=== PATIENT | male | born 1970 | race Caucasian/White ===

== ENCOUNTER 2021-09-01 12:05 | Emergency (ER) | payer SELFPAY ==
[2021-09-01] VITALS (7 sets, daily range): BP systolic 135–197; BP diastolic 80–128; PULSE 84–99; RESP 16–21; TEMP 36.8; O2SAT 97–99; BMI 31.2
--- NOTE | 2021-09-01 12:29 | ECG_ITS ---
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 Measurements Intervals [place] Rate: 91 P: 46 MN: 120 QRS: 82 QRSD: 104 T: 17 QT: 350 QTc: 431 Interpretive Statements SINUS RHYTHM No previous ECG available for comparison Electronically Signed On 09-01-2021 18:07:01 GEAR INSPECTOR by Dylon Mathis M.D. [email or web address].[email or web address]/store/[id number]
--- NOTE | 2021-09-01 12:54 | W.ED.CHESTPA ---
HPI - Chest Pain General: Chief Complaint: Chest Pain Stated Complaint: Chest Pains, high blood pressure, on new meds Time Seen by Provider: 09/01/21 12:29 Source: patient Mode of arrival: ambulatory History of Present Illness: 51-year-old male presents to the emergency room with complaint of chest discomfort he had for the last 3 to 4 days. Additionally he said numbness in his arms bilaterally and in his face. He seen his doctor multiple times last week for accelerated hypertension he was initially on lisinopril then increase the dose and change to olmesartan today seen him and they added a beta-shanelle but he is not the opportunity to take it presented here with the above symptoms. He denies any diaphoresis or shortness of breath this time. Chest pain is reproducible palpation across the anterior chest wall. MD complaint: chest pain Onset (ago): day(s) Timing of current episode: episodic Prior episodes: Yes Onset: during rest and during exertion Pain location: right chest Pain radiation: right arm and left arm Severity: moderate Quality: sharp Relieving factors: nothing Exacerbating factors: nothing Associated symptoms: Deny abdominal pain, diaphoresis, dyspnea, fever(s), leg edema, nausea, palpitations, sense of impending doom, syncope or vomiting Treatment prior to arrival: aspirin and other (Oral antihypertensives) Risk Factors: Coronary artery disease risk factors: smoking history Review of Systems Const: Denies: fever(s) or diaphoresis ENMT: Denies: throat pain, ear or mastoid pain, nasal discharge or nasal congestion Card: Denies: palpitations or syncope Resp: Denies: dyspnea GI: Denies: abdominal pain, nausea or vomiting : Denies: flank pain, dysuria, urinary frequency or urinary urgency Skin/Breast: Denies: rash or pruritus [facility] PFSH: Medical History (Updated 09/02/21 @ 06:30 by Alonzo Golden DO) Hypertension Obesity Social History (Updated 09/01/21 @ 12:57 by Alonzo Golden DO) Smoking and tobacco status: current every day smoker Substance/Drug Use: current Physical Exam Const: GENERAL APPEARANCE: cooperative and comfortable ORIENTATION/CONSCIOUSNESS: Yes awake, Yes oriented to person, Yes oriented to place and Yes oriented to time HENMT: COMMON NORMALS: normocephalic and atraumatic HEAD & SCALP: normocephalic and atraumatic Neck/C-Spine: COMMON NORMALS: no JVD Resp: COMMON NORMALS: normal respiratory effort, No retractions, No use of accessory muscles and clear to auscultation bilaterally AUSCULTATION: clear to auscultation bilaterally Cardio: COMMON NORMALS: no JVD, regular rate, regular rhythm and No murmurs present (Cardio) RATE: regular rate RHYTHM: regular rhythm GI: COMMON NORMALS: Soft to palpation and No hepatosplenomegaly present AUSCULTATION: Yes normoactive bowel sounds PALPATION: Yes Soft to palpation, No Tenderness to palpation present (GI), No Guarding due to palpation present (GI) and Yes No hepatosplenomegaly present Extremity: COMMON NORMALS: normal to inspection, capillary refill normal, no clubbing, cyanosis or edema, no calf tenderness and no pedal edema Neuro: SENSORIUM/ORIENTATION: Yes oriented to person, Yes oriented to place and Yes oriented to time Skin: COMMON NORMALS: no rashes or lesions noted GENERAL SKIN EXAM: no rashes or lesions noted Course Vital Signs: Vital signs: Vital Signs Temperature 98.3 F 09/01/21 12:18 Pulse Rate 84 09/01/21 18:03 Respiratory Rate 19 H 09/01/21 16:33 Blood Pressure 168/95 09/01/21 18:03 Pulse Oximetry 99 09/01/21 18:03 MDM - Chest Pain Medical Decision Making Blood pressure is elevated. He has had chest pain for a year EKG and troponins are negative. I think we can set him up for outpatient stress test. After he came back in the room he was complaining of facial numbness but his sensation bilaterally is equal. The rest of his NIH score would be 0. He is extremely anxious. We did give him quite a bit of medicine for his blood pressure while he was here. He was given Toprol-XL by his nurse practitioner and is on olmesartan 40 a day now. Olmesartan is maxed we will increase the Toprol-XL to 50 once a day. Additionally start him on amlodipine 10 mg daily and isosorbide mononitrate 30 mg daily. In addition to that patient has been taking several aspirin a day he was under the impression that by taking the aspirin that his blood pressure would get labs. Advised him just take 1 baby aspirin a day no more than that as needed. Follow-up with his blood pressure in the doctor's office tomorrow. Medical Records I reviewed the patient's medical records. Lab Data I reviewed the patient's lab results. : 09/01/21 12:52 09/01/21 13:[address] 09/01/21 16:38 IMPRESSION: No acute intracranial abnormality. Laboratory Results WBC 11.3 10^3/uL (4.0-10.0) H 09/01/21 12:52 RBC 5.29 10^6/uL (4.1-5.3) 09/01/21 12:52 Hgb 15.9 g/dL (11.7-16.6) 09/01/21 12:52 Hct 47.5 % (42.0-52.0) 09/01/21 12:52 MCV 89.8 fl (80-94) 09/01/21 12:52 MCH 30.1 pg (28.0-34.0) 09/01/21 12:52 MCHC 33.5 g/dL (30.0-36.0) 09/01/21 12:52 RDW 13.0 % (12.1-15.1) 09/01/21 12:52 Plt Count 290 10^3/cmm (130-400) 09/01/21 12:52 MPV 8.8 fL (7.4-10.4) 09/01/21 12:52 Neut % (Auto) 61.3 % 09/01/21 12:52 Lymph % (Auto) 29.1 % 09/01/21 12:52 Citrus % (Auto) 6.3 % 09/01/21 12:52 Eos % (Auto) 2.0 % 09/01/21 12:52 Baso % (Auto) 1.0 % 09/01/21 12:52 Neut # (Auto) 6.95 10^3/uL (1.8-7.7) 09/01/21 12:52 Lymph # (Auto) 3.3 10^3/uL (0.8-4.8) 09/01/21 12:52 Citrus # (Auto) 0.7 10^3/uL (0.2-0.9) 09/01/21 12:52 Eos # (Auto) 0.2 10^3/uL (0.0-0.8) 09/01/21 12:52 Baso # (Auto) 0.1 10^3/uL (0.0-0.1) 09/01/21 12:52 Nucleated RBC % (auto) 0 % 09/01/21 12:52 Nucleated RBCs # 0.0 /100WBC 09/01/21 12:52 Sodium 140 mmol/L (136-145) 09/01/21 13:57 Potassium 4.0 mmol/L (3.5-5.1) 09/01/21 13:57 Chloride 106 mmol/L (98-107) 09/01/21 13:57 Carbon Dioxide 24 mmol/L (22-29) 09/01/21 13:57 Anion Gap 14.0 (5-19) 09/01/21 13:57 BUN 18 mg/dL (6-20) 09/01/21 13:57 Creatinine 0.9 mg/dL (0.7-1.2) 09/01/21 13:57 GFR Calculation 89.3 mL/min (90-130) L 09/01/21 13:57 Glucose 104 mg/dL (65-115) 09/01/21 13:57 Calculated Osmolality 292 mOsm/kg (285-295) 09/01/21 13:57 Calcium 8.7 mg/dL (8.5-10.5) 09/01/21 13:57 Total Bilirubin 0.2 mg/dL (0.15-1.2) 09/01/21 13:57 AST 18 U/L (0-40) 09/01/21 13:57 ALT 20 U/L (0-41) 09/01/21 13:57 Alkaline Phosphatase 108 IU/L (40-130) 09/01/21 13:57 Creatine Kinase 123 U/L (39-308) 09/01/21 13:57 Troponin T Baseline 6 ng/L (0-15) 09/01/21 13:57 Troponin T 120 Minute 6.00 ng/L (0-15) 09/01/21 15:54 Delta Troponin T TNP 09/01/21 15:54 Total Protein 7.0 g/dL (6.6-8.7) 09/01/21 13:57 Albumin 4.3 g/dL (3.5-5.2) 09/01/21 13:57 Globulin 2.7 g/dL (1.3-4.6) 09/01/21 13:57 Discharge Plan Discharge Patient Disposition: Home Clinical Impression: Hypertension, Atypical chest pain Prescriptions: New amlodipine 10 mg tablet 10 mg PO DAILY Qty: 30 0RF Toprol XL 50 mg tablet extended release 24 hr 50 mg PO DAILY Qty: 30 0RF olmesartan 40 mg tablet 40 mg PO DAILY Qty: 30 0RF isosorbide mononitrate 30 mg tablet extended release 24 hr 30 mg PO DAILY Qty: 30 0RF Discharge Orders: Discharge ED (Routine); Ordered 09/01/21 Ordered By: Alonzo Golden Patient Instructions: Opioid Safety Activity Restrictions/Additional Instructions: Case management will call to set up a Lexiscan sestamibi stress test. Start the medications you were given above. Take 1 baby aspirin daily recheck blood pressure with your primary care doctor tomorrow. Coding Level of Care Code ED Hydrogen Plant Operations Manager for Cornelio Fwsantiago Exam Comprehensive
[2021-09-01] MEDS: enalaprilat 1.25 mg/mL Inj IVP (13:01)
[2021-09-01] MEDS: amlodipine 10 mg Tablet PO (13:01)
[2021-09-01] MEDS: metoprolol succinate ER (24 HR) 50 mg Tablet PO (13:01)
[2021-09-01] MEDS: labetalol 5 mg/mL SDV 20mL 10 MG IVP ×3 (13:01→17:08)
[2021-09-01 13:03] LABS: Basophils # 0.1 10^3/uL (0.0-0.1); Eosinophils # 0.2 10^3/uL (0.0-0.8); Hematocrit 47.5 % (42.0-52.0); Hemoglobin 15.9 g/dL (11.7-16.6); Lymphocytes # 3.3 10^3/uL (0.8-4.8); Lymphocytes % 29.1 %; Mean Corpuscular HGB Conc 33.5 g/dL (30.0-36.0); Mean Corpuscular Hemoglobin 30.1 pg (28.0-34.0); Mean Corpuscular Volume 89.8 fl (80-94); Mean Platelet Volume 8.8 fL (7.4-10.4); Monocytes # 0.7 10^3/uL (0.2-0.9); Monocytes % 6.3 %; Neutrophils # 6.95 10^3/uL (1.8-7.7); Neutrophils % 61.3 %; Nucleated Red Blood Cells % 0 %; Platelet Count 290 10^3/cmm (130-400); Red Blood Count 5.29 10^6/uL (4.1-5.3); White Blood Count 11.3 10^3/uL (4.0-10.0)
[2021-09-01] MEDS: hyDRALAzine 20 mg/mL INJ 1 mL IVP ×2 (14:15→15:01)
--- NOTE | 2021-09-01 14:29 | ECG_ITS ---
[facility] Test Date: 2021-09-01 Pat Name: Juan J Guillen Department: Room: Gender: Male Cordwainer: : 1970 Requested By: Alonzo Ruiz Order Number: [id number] Mark MD: Dylon Mathis M.D. Measurements Intervals [place] Rate: 87 P: 53 [place]: 143 QRS: 77 QRSD: 106 T: 40 QT: 375 QTc: 452 Interpretive Statements SINUS RHYTHM Compared to ECG 09/01/2021 12:16:47 No significant changes Electronically Signed On 09-01-2021 18:07:51 MIDDLE SCHOOL BAND TEACHER by Dylon Mathis M.D. [email or web address] [email or web address].[employer]/store/OM/[id number]
[2021-09-01 14:53] LABS: Alanine Aminotransferase 20 U/L (0-41); Albumin Level 4.3 g/dL (3.5-5.2); Alkaline Phosphatase 108 IU/L (40-130); Aspartate Amino Transferase 18 U/L (0-40); Blood Urea Nitrogen 18 mg/dL (6-20); Calcium 8.7 mg/dL (8.5-10.5); Carbon Dioxide 24 mmol/L (22-29); Chloride 106 mmol/L (98-107); Creatine Phosphokinase 123 U/L (39-308); Globulin 2.7 g/dL (1.3-4.6); Glomerular Filtration Rate 89.3 mL/min (90-130); Glucose 104 mg/dL (65-115); Osmolality Calculated 292 mOsm/kg (285-295); Sodium 140 mmol/L (136-145); Total Bilirubin 0.2 mg/dL (0.15-1.2)
[2021-09-01 14:55] LABS: Troponin(5th) Baseline 6 ng/L (0-15)
[2021-09-01] MEDS: cloNIDine 0.1 mg Tablet PO (15:01)
--- NOTE | 2021-09-01 16:38 | CTR_ITS ---
PROCEDURE INFORMATION: Exam: CT Head Without Contrast Exam date and time: 09/01/2021 4:38 PM Age: 51 years old Clinical indication: Numbness / parasthesia; Additional info: Accelerated hypertension facial numbness TECHNIQUE: Imaging protocol: Computed tomography of the head without contrast. Radiation optimization: All CT scans at this facility use at least one of these dose optimization techniques: automated exposure control; mA and/or kV adjustment per patient size (includes targeted exams where dose is matched to clinical indication); or iterative reconstruction. COMPARISON: No relevant prior studies available. RADIATION DOSE METRICS: Total DLP (mGy-cm): 854.84 FINDINGS: Brain: Normal. No hemorrhage. Unremarkable white matter. No mass effect. Cerebral ventricles: No ventriculomegaly. Paranasal sinuses: Visualized sinuses are unremarkable. No fluid levels. Mastoid air cells: Visualized mastoid air cells are well aerated. Bones/joints: Unremarkable. No acute fracture. Soft tissues: Unremarkable. CT/CT head wo con* [id number] IMPRESSION: No acute intracranial abnormality.
[2021-09-01] MEDS: isosorbide mononitrate ER 30 mg Tablet PO (17:45)
--- NOTE | 2021-09-04 15:11 | DCPLANNER ---
Addendum entered by Michell Bird 10/10/21 12:00: Patient had a follow up appointment scheduled for 09.08.21 with [facility] - patient did attend appointment. Patient had an outpatient stress test scheduled for 09.22.21 - patient did attend appointment. Addendum entered by Michell Bird 09/19/21 10:27: Patient has an out patient stress test scheduled for Wednesday, September 22, 2021 at 9:15. Centralized scheduling will call patient with appointment information. Addendum entered by Michell Bird 09/11/21 19:29: Patient had a follow up appointment scheduled for 09.08.21 with [facility] - patient did attend appointment. Original Note: user experience manager had message to schedule a follow up appointment for patient with [facility] and a outpatient stress test. user experience manager called [facility], spoke with Penny, gave clinic patients information. A follow up appointment was scheduled for Wednesday, September 08, 2021 at 9:[address] Benavides. Patient is aware of appointment. user experience manager also had message to schedule an outpatient stress test. user experience manager faxed signed order to centralized scheduling, who will call patient with appointment information.
== END 2021-09-01 17:50 | disposition home or self-care (01) ==
PROVIDERS: Emergency Provider Family Medicine
DX: R07.89 Other chest pain (principal); I10 Essential (primary) hypertension; F17.210 Nicotine dependence, cigarettes, uncomplicated
CPT/HCPCS: 70450; 80053; 82550; 84484; 85025; 93005; 96374; 96375; 96376; 99284; J0360; J3490

== ENCOUNTER 2021-09-22 06:59 | Outpatient (CLI) | payer SELFPAY ==
[2021-09-22 07:27] VITALS: BMI 31.1
--- NOTE | 2021-09-22 07:31 | ECG_ITS ---
Test Date: 2021-09-22 Pat Name: Juan J Guillen Department: Room: Gender: Male Country Singer: Amanda Kessler : 1970 Requested By: Payton Benavides Order Number: [id number] Mark MD: Payton Benavides M.D. Interpretive Statements NAME OF STUDY: LEXISCAN SESTAMIBI STRESS TEST INDICATION: Chest Pain PROCEDURE: At the baseline, the blood pressure was 107/73 mmHg, oxygen saturation 94% with a heart rate of 77 beats per minute. The electrocardiogram showed normal sinus rhythm, right axis deviation. Nonspecific T wave abnormality in lead III, aVF and V6. The Lexiscan was infused over a period of 20 seconds. A total of 0.4 milligrams of Lexiscan was infused. The stress phase was continued for a total of 5 minutes. Heart rate at the end of the stress phase was 91 bpm, oxygen saturation 94% with a blood pressure of 113/67 mmHg. The EKG at the peak infusion revealed sinus rhythm with no significant ST-T wave changes. Sestamibi was injected 20 seconds after the Lexiscan infusion. Blood pressure at the end of the recovery phase was 113/65 mmHg, oxygen saturation 91% with a heart rate of 89 beats per minute. CONCLUSION: 1. No significant EKG changes with the LexiScan infusion. 2. No LexiScan induced chest pain or cardiac arrhythmia. 3. Normal blood pressure and heart rate response. 4. Sestamibi/sestamibi perfusion scan pending; see separate report. Electronically Signed On 09-22-2021 16:26:25 INSPECTOR OUTSIDE STEAM DISTRIBUTION by Payton Benavides M.D. [email or web address].[employer] [facility]/store/OM/[id number]
--- NOTE | 2021-09-22 07:31 | NMCV_ITS ---
NM julia perf SPECT r/s* [id number] Juan J Guillen Age: 51 Gender: M : 1970 Exam Date: 09/22/2021 08:19 Ordering Phys: Payton Benavides MD ([email or web address]) Technologist: SJ Dawson Exam Location: [facility] Indications: CHEST PAIN STRESS TEST Please see separate stress test report in [facility] for full findings IMAGE PROTOCOL Rest/Stress 1 Lexiscan Day Radiopharmaceutical Dose (mCi) Administration Site Administered by Rest: Tc-99m 10.7 IV SJ Ashley Sestamibi Stress:Tc-99m 33.0 IV SJ Ashley Sestamibi Rest: 22-Sep-2021 60 Discovery 630 Stress: 22-Sep-2021 30 Discovery 630 0.4mg Lexiscan. Images obtained in supine and prone position. SPECT RESULTS Technical Quality: Excellent Raw Data Analysis: Normal Image Corrections: No attenuation or motion correction applied Summed Stress Score: 0 Summed Rest Score: 0 Summed Difference Score: 0 PERFUSION FINDINGS SPECT images demonstrate homogeneous tracer distribution throughout the myocardium. FUNCTIONAL RESULTS (calculated via Gated SPECT) Stress Image LV EF (%): 68 Stress EDV (mL):106 TID: 0.99 Stress ESV (mL):34 FUNCTIONAL FINDINGS: The left ventricle is normal in size. Transient Ischemia Dilatation of 0.99. There is normal left ventricular systolic function. The left ventricular ejection fraction is normal with a value of 68%. There is normal left ventricular wall thickening with no regional wall motion abnormality. Normal end-diastolic and end-systolic volumes. IMPRESSIONS 1. Myocardial perfusion imaging is normal. 2. Overall left ventricular systolic function is normal without regional wall motion abnormalities. 3. The left ventricular ejection fraction is normal with a value of 68%. 4. Scan indicates low risk for cardiac events. Payton Benavides MD (Electronically Signed) Final Date: 22 September 2021 17:17 S
[2021-09-22] MEDS: regadenoson 0.4 Mg/5 ml Syringe IVP (08:46)
[2021-09-22 08:57] VITALS: BP 113/65; PULSE 91
== END 2021-09-22 07:00 | disposition home or self-care (01) ==
LOC: RAD 07:06 → CDL 07:26
PROVIDERS: PCP Nurse Practitioner Family; Visit Provider Internal Medicine Cardiovascular Disease
DX: R07.9 Chest pain, unspecified (principal)
CPT/HCPCS: 78452; 93017; A9500; J2785

== ENCOUNTER 2021-09-24 06:55 | Outpatient (CLI) | payer SELFPAY ==
--- NOTE | 2021-09-24 07:00 | USCV_ITS ---
Juan J Guillen Age: 51 Gender: M : 1970 Exam Date: 09/24/2021 07:12 Ordering Phys: Payton Benavides MD ([email or web address]) Technologist: Jeff Waters Exam Location: [facility] Indication: Hypertension BP: 148 / 88 HR: 86 Rhythm: Sinus Technical Quality: Adequate MEASUREMENTS (Male / Female) Normal Values 2D ECHO LV Diastolic Diameter PLAX 3.6 cm 4.2 - 5.9 / 3.9 - 5.3 cm LV Systolic Diameter PLAX 2.1 cm IVS Diastolic Thickness 1.1 cm 0.6 - 1.0 / 0.6 - 0.9 cm IVS Systolic Thickness 1.7 cm LVPW Diastolic Thickness 1.2 cm 0.6 - 1.0 / 0.6 - 0.9 cm LVPW Systolic Thickness 1.7 cm LVOT Diameter 2.0 cm LV Ejection Fraction 2D Teich 73.3 % LV Ejection Fraction MOD 2C 61.2 % LV Ejection Fraction 2C AL 62.0 % LA Diameter 3.5 cm M-MODE Aortic Annulus Diameter 3.1 cm LA Ao Ratio MM 1.2 MV E Point Septal Separation 0.6 cm DOPPLER AV Peak Velocity 158.0 cm/s LVOT Peak Velocity 129.0 cm/s AV Area Cont Eq vti 2.7 cm squared AV Area Cont Eq pk 2.6 cm squared MV Area PHT 5.0 cm squared Mitral E to A Ratio 1.1 MV E' Velocity 37.5 cm/s Mitral E to MV E' Ratio 6.7 Mitral E to LV E' Lateral Ratio 4.7 Mitral E to LV E' Septal Ratio 12.2 TR Peak Velocity 118.0 cm/s TR Peak Gradient 5.6 mmHg TV Peak E Velocity 64.0 cm/s Right Atrial Pressure 3.0 mmHg Pulmonary Artery Systolic Pressu 8.6 mmHg PV Peak Velocity 105.0 cm/s FINDINGS Left Ventricle Normal left ventricular size, systolic function and wall thickness, with no regional wall motion abnormalities. Left ventricular ejection fraction is estimated at 60-65 %. Normal diastolic function. Right Ventricle Normal right ventricular size and systolic function. Right ventricular systolic pressure 12 mmHg. Right Atrium Normal right atrial size. Right atrial pressure estimated at 3 mmHg. Left Atrium Normal left atrial size. Mitral Valve Structurally normal mitral valve. No mitral valve stenosis. No mitral valve regurgitation. Aortic Valve Aortic valve not well visualized. No aortic valve stenosis. No aortic valve regurgitation. Tricuspid Valve Structurally normal tricuspid valve. Trace tricuspid valve regurgitation. Pulmonic Valve Structurally normal pulmonic valve. No pulmonary valve stenosis. No pulmonary valve regurgitation. Pericardium No pericardial effusion. Aorta Normal size aortic root and proximal ascending aorta. Normal- sized inferior vena cava. CONCLUSIONS 1. Normal left ventricular size, systolic function and wall thickness, with no regional wall motion abnormalities. Left ventricular ejection fraction is estimated at 60-65 %. Normal diastolic function. 2. Normal right ventricular size and systolic function. 3. Normal pulmonary artery pressure. 4. No prior similar studies to compare. Payton Benavides MD (Electronically Signed) Final Date: 24 September 2021 14:05 S
== END 2021-09-24 06:56 | disposition home or self-care (01) ==
LOC: RAD 06:56
PROVIDERS: PCP Nurse Practitioner Family; Visit Provider Internal Medicine Cardiovascular Disease
DX: I10 Essential (primary) hypertension (principal)
CPT/HCPCS: 93306

== ENCOUNTER 2021-09-30 09:52 | Emergency (ER) | payer SELFPAY ==
[2021-09-30] VITALS (14 sets, daily range): BP systolic 110–150; BP diastolic 73–90; PULSE 74–94; RESP 11–20; O2SAT 92–96; BMI 30.9
--- NOTE | 2021-09-30 09:57 | XR_ITS ---
WS: [id number] XR chest 1V portable [id number] REASON FOR EXAM: chest pain FINDINGS: Mild tortuosity the thoracic aorta without aneurysmal dilatation. Normal heart size. Calcified granulomatous disease in both hemithoraces. There are linear and reticular interstitial opacities in the lower lung gonzales of unknown chronicity. Moderate degenerative spondylosis in the mid and lower thoracic spine. XR/XR chest 1V portable [id number] IMPRESSION: Lung bases changes as above of unknown chronicity. Early pneumonitis to BE cons idered.
--- NOTE | 2021-09-30 09:58 | ECG_ITS ---
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 Measurements Intervals [place] Rate: 82 P: 20 [place]: 139 QRS: 58 QRSD: 91 T: 55 QT: 340 QTc: 397 Interpretive Statements SINUS RHYTHM Compared to ECG 09/01/2021 16:22:22 No significant changes Electronically Signed On 10-01-2021 18:49:37 CDT by Dylon Mathis M.D. [email or web address] rehabilitation centerTranscripticselect [facility].[employer]/store/OM/[id number]
--- NOTE | 2021-09-30 10:15 | W.ED.CHESTPA ---
HPI - Chest Pain General: Chief Complaint: Chest Pain Stated Complaint: Chest pain, numbness Time Seen by Provider: 09/30/21 09:57 Source: patient Mode of arrival: ambulatory Limitations: no limitations History of Present Illness: 51-year-old male presents emergency room extremely anxious. He is complaining numbness and tingling bilaterally in his arms or legs and a brief episode of chest pain today. He was seen last month for similar presentation head CT was unremarkable he had a 0 on a stroke score his blood pressure was markedly elevated. We had increased his beta-shanelle to Toprol-XL 50 daily, added amlodipine 10 mg daily and isosorbide mononitrate. He is continuing the on the isosorbide but it was changed to 50 mg twice a day. He has had a stress test since then which was negative and is also seen Dr. Jang. Dr. Rodriguez also gave him clonidine in addition to splitting the isosorbide mononitrate to twice a day. She also changed him from Toprol to carvedilol. He is currently taking 12 mg twice daily. Episode this morning began while at rest. He states he still having numbness in the arm. No vomiting. He is not noticed anything that seem to precipitate or relieve it. Stress test done on 09/22/2021 was negative. MD complaint: chest discomfort Onset (ago): hour(s) Timing of current episode: episodic Prior episodes: Yes Onset: during rest Pain location: substernal Pain radiation: right arm and left arm Severity: mild Quality: aching and heaviness Relieving factors: nothing Exacerbating factors: nothing Associated symptoms: Deny abdominal pain, diaphoresis, dyspnea, fever(s), leg edema, nausea, palpitations, sense of impending doom, syncope or vomiting Treatment prior to arrival: none Risk Factors: Coronary artery disease risk factors: hypertension and family history of CAD before age 50 Review of Systems Const: Denies: fever(s) or diaphoresis ENMT: Denies: throat pain, ear or mastoid pain, nasal discharge or nasal congestion Card: Denies: palpitations or syncope Resp: Denies: dyspnea GI: Denies: abdominal pain, nausea or vomiting : Denies: flank pain, dysuria, urinary frequency or urinary urgency Skin/Breast: Denies: rash or pruritus PFSH ED PFSH: Medical History Family history of ischemic heart disease and other diseases of the circulatory system Hypertension Obesity Smoker Family History Father , Age 58 Stroke Stroke age 51 Myocardial infarct Grandfather Myocardial infarct Mother Myocardial infarct Grandmother Myocardial infarct Other Hypertension Social History Smoking and tobacco status: current every day smoker (1ppd X 30 years) Physical Exam Const: COMMON NORMALS: no acute distress GENERAL APPEARANCE: cooperative and comfortable ORIENTATION/CONSCIOUSNESS: Yes awake, Yes oriented to person, Yes oriented to place and Yes oriented to time HENMT: COMMON NORMALS: normocephalic, atraumatic and hearing grossly normal bilaterally HEAD & SCALP: normocephalic and atraumatic Neck/C-Spine: COMMON NORMALS: no JVD Resp: COMMON NORMALS: normal respiratory effort, No retractions, No use of accessory muscles and clear to auscultation bilaterally AUSCULTATION: clear to auscultation bilaterally Cardio: COMMON NORMALS: no JVD, regular rate, regular rhythm and No murmurs present (Cardio) RATE: regular rate RHYTHM: regular rhythm GI: COMMON NORMALS: Soft to palpation and No hepatosplenomegaly present AUSCULTATION: Yes normoactive bowel sounds PALPATION: Yes Soft to palpation, No Tenderness to palpation present (GI), No Guarding due to palpation present (GI) and Yes No hepatosplenomegaly present Extremity: COMMON NORMALS: normal to inspection, capillary refill normal, no clubbing, cyanosis or edema, no calf tenderness and no pedal edema Neuro: SENSORIUM/ORIENTATION: Yes oriented to person, Yes oriented to place and Yes oriented to time Skin: COMMON NORMALS: no rashes or lesions noted GENERAL SKIN EXAM: no rashes or lesions noted Course Vital Signs: Vital signs: Vital Signs Pulse Rate 81 09/30/21 14:25 Respiratory Rate 15 09/30/21 14:25 Blood Pressure 128/79 09/30/21 14:25 Pulse Oximetry 94 09/30/21 14:25 MDM - Chest Pain Medical Decision Making EKG and serial enzymes are negative. Patient had a Lexiscan sestamibi stress test that was negative just 7 days ago. We will start him on some Protonix. He had an episode of lower blood pressure this morning although it was not particularly hypotensive he was somewhat symptomatic of it. Continue his other medications with exception of hydrochlorothiazide asked him to stop that I think that may contribute to some of his symptoms. He has a follow-up with Dr. Andrade next week he should keep that. Medical Records I reviewed the patient's medical records. Lab Data I reviewed the patient's lab results. : 09/30/21 10:20 09/30/21 11:14 Radiology Impressions Chest X-Ray 09/30/21 09:57 IMPRESSION: Lung bases changes as above of unknown chronicity. Early pneumonitis to BE considered. Laboratory Results WBC 10.5 10^3/uL (4.0-10.0) H 09/30/21 10:20 RBC 5.18 10^6/uL (4.1-5.3) 09/30/21 10:20 Hgb 15.4 g/dL (11.7-16.6) 09/30/21 10:20 Hct 45.0 % (42.0-52.0) 09/30/21 10:20 MCV 86.9 fl (80-94) 09/30/21 10:20 MCH 29.7 pg (28.0-34.0) 09/30/21 10:20 MCHC 34.2 g/dL (30.0-36.0) 09/30/21 10:20 RDW 12.6 % (12.1-15.1) 09/30/21 10:20 Plt Count 344 10^3/cmm (130-400) 09/30/21 10:20 MPV 8.6 fL (7.4-10.4) 09/30/21 10:20 Neut % (Auto) 59.8 % 09/30/21 10:20 Lymph % (Auto) 29.1 % 09/30/21 10:20 Pepin % (Auto) 5.6 % 09/30/21 10:20 Eos % (Auto) 4.1 % 09/30/21 10:20 Baso % (Auto) 1.0 % 09/30/21 10:20 Neut # (Auto) 6.26 10^3/uL (1.8-7.7) 09/30/21 10:20 Lymph # (Auto) 3.1 10^3/uL (0.8-4.8) 09/30/21 10:20 Pepin # (Auto) 0.6 10^3/uL (0.2-0.9) 09/30/21 10:20 Eos # (Auto) 0.4 10^3/uL (0.0-0.8) 09/30/21 10:20 Baso # (Auto) 0.1 10^3/uL (0.0-0.1) 09/30/21 10:20 Nucleated RBC % (auto) 0 % 09/30/21 10:20 Nucleated RBCs # 0.0 /100WBC 09/30/21 10:20 Sodium 136 mmol/L (136-145) 09/30/21 11:14 Potassium 4.4 mmol/L (3.5-5.1) 09/30/21 11:14 Chloride 101 mmol/L (98-107) 09/30/21 11:14 Carbon Dioxide 24 mmol/L (22-29) 09/30/21 11:14 Anion Gap 15.4 (5-19) 09/30/21 11:14 BUN 21 mg/dL (6-20) H 09/30/21 11:14 Creatinine 0.9 mg/dL (0.7-1.2) 09/30/21 11:14 GFR Calculation 89.3 mL/min (90-130) L 09/30/21 11:14 Glucose 111 mg/dL (65-115) 09/30/21 11:14 Calculated Osmolality 286 mOsm/kg (285-295) 09/30/21 11:14 Calcium 8.7 mg/dL (8.5-10.5) 09/30/21 11:14 Total Bilirubin 0.3 mg/dL (0.15-1.2) 09/30/21 11:14 AST 18 U/L (0-40) 09/30/21 11:14 ALT 30 U/L (0-41) 09/30/21 11:14 Alkaline Phosphatase 105 IU/L (40-130) 09/30/21 11:14 Troponin T Baseline 8 ng/L (0-15) 09/30/21 10:20 Troponin T 120 Minute 6.00 ng/L (0-15) 09/30/21 12:47 Delta Troponin T -2.00 ABS# (0-10) L 09/30/21 12:47 Total Protein 7.1 g/dL (6.6-8.7) 09/30/21 11:14 Albumin 4.4 g/dL (3.5-5.2) 09/30/21 11:14 Globulin 2.7 g/dL (1.3-4.6) 09/30/21 11:14 Discharge Plan Discharge Patient Disposition: Home Clinical Impression: Chest pain due to gastrointestinal reflux disease, Hypertension, Obesity Condition: Stable Prescriptions: New pantoprazole 40 mg tablet,delayed release (DR/EC) 40 mg PO QAM 56 Days Qty: 56 0RF No Action buspirone 15 mg tablet 7.5 mg PO BID 0RF aspirin [Adult Low Dose Aspirin] 81 mg tablet,delayed release (DR/EC) 81 mg PO QAM 0RF naproxen sodium [Aleve] 220 mg tablet 220 mg PO BID PRN (Reason: Pain) 0RF clonidine HCl 0.1 mg tablet 0.1 mg PO BID PRN (Reason: hypertensive emergency) Qty: 60 1RF Rx Instructions: For blood pressure greater than 160/100 mmHg Vitamin C 500 mg Tablet 500 mg PO DAILY 0RF hydrochlorothiazide 25 mg tablet 25 mg PO QAM 0RF olmesartan 40 mg tablet 40 mg PO QAM 0RF Vitamin D3 1 cap PO DAILY 0RF Coreg 12.5 mg tablet 6.25 mg PO BID 0RF Rx Instructions: must administer with a meal/food isosorbide mononitrate 30 mg tablet extended release 24 hr 30 mg PO QAM 0RF amlodipine 10 mg tablet 10 mg PO QPM 0RF Discharge Orders: Discharge ED (Routine); Ordered 09/30/21 Ordered By: Alonzo Golden Referrals: Eliazbeth Leblanc APN [Primary Care Provider] - Discharge Diet: Usual diet Discharge Activity: Resume usual activity Patient Instructions: Opioid Safety Activity Restrictions/Additional Instructions: Continue other medications. Follow-up with your primary care doctor within the next week. Coding Level of Care Code ED Light Rail Signal Technician for Cornelio Henson
[2021-09-30 10:36] LABS: Basophils # 0.1 10^3/uL (0.0-0.1); Eosinophils # 0.4 10^3/uL (0.0-0.8); Eosinophils % 4.1 %; Hemoglobin 15.4 g/dL (11.7-16.6); Lymphocytes # 3.1 10^3/uL (0.8-4.8); Lymphocytes % 29.1 %; Mean Corpuscular HGB Conc 34.2 g/dL (30.0-36.0); Mean Corpuscular Hemoglobin 29.7 pg (28.0-34.0); Mean Corpuscular Volume 86.9 fl (80-94); Mean Platelet Volume 8.6 fL (7.4-10.4); Monocytes # 0.6 10^3/uL (0.2-0.9); Monocytes % 5.6 %; Neutrophils # 6.26 10^3/uL (1.8-7.7); Neutrophils % 59.8 %; Nucleated Red Blood Cells % 0 %; Platelet Count 344 10^3/cmm (130-400); Red Blood Count 5.18 10^6/uL (4.1-5.3); Red Cell Distribution Width 12.6 % (12.1-15.1); White Blood Count 10.5 10^3/uL (4.0-10.0)
[2021-09-30 10:49] LABS: Troponin(5th) Baseline 8 ng/L (0-15)
--- NOTE | 2021-09-30 11:42 | PC.PHAR ---
pt states he takes care of his own medications-pt states he is no longer taking metoprolol succ er 50mg daily last filled on 09/02/21 90d/s-pt states he takes coreg 6.25mg bid rx was filled on 09/08/21 90d/s for 12.5mg bid pt states the dr changed to how he is taking it-
[2021-09-30 11:54] LABS: Alanine Aminotransferase 30 U/L (0-41); Albumin Level 4.4 g/dL (3.5-5.2); Alkaline Phosphatase 105 IU/L (40-130); Anion Gap 15.4 (5-19); Aspartate Amino Transferase 18 U/L (0-40); Blood Urea Nitrogen 21 mg/dL (6-20); Calcium 8.7 mg/dL (8.5-10.5); Carbon Dioxide 24 mmol/L (22-29); Chloride 101 mmol/L (98-107); Globulin 2.7 g/dL (1.3-4.6); Glomerular Filtration Rate 89.3 mL/min (90-130); Glucose 111 mg/dL (65-115); Osmolality Calculated 286 mOsm/kg (285-295); Potassium 4.4 mmol/L (3.5-5.1); Sodium 136 mmol/L (136-145); Total Bilirubin 0.3 mg/dL (0.15-1.2); Total Protein 7.1 g/dL (6.6-8.7)
--- NOTE | 2021-09-30 11:58 | ECG_ITS ---
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 Measurements Intervals [place] Rate: 80 P: 23 MI: 136 QRS: 53 QRSD: 92 T: 55 QT: 353 QTc: 408 Interpretive Statements SINUS RHYTHM Compared to ECG 09/30/2021 10:16:49 No significant changes Electronically Signed On 10-01-2021 20:25:57 CDT by Dylon Mathis M.D. [email or web address] holmes countyMiartech ([place]ISNR/store/OM/[id number]
== END 2021-09-30 14:27 | disposition home or self-care (01) ==
PROVIDERS: Emergency Provider Family Medicine; PCP Nurse Practitioner Family
DX: K21.9 Gastro-esophageal reflux disease without esophagitis (principal); I10 Essential (primary) hypertension; E66.9 Obesity, unspecified; Z68.31 Body mass index [BMI] 31.0-31.9, adult; Z79.82 Long term (current) use of aspirin; F17.210 Nicotine dependence, cigarettes, uncomplicated
CPT/HCPCS: 71045; 80053; 84484; 85025; 93005; 99284

== ENCOUNTER 2021-10-12 23:03 | Emergency (ER) | payer SELFPAY ==
[2021-10-12 23:07] VITALS: BP 162/89; PULSE 74; RESP 18; TEMP 36.6; O2SAT 98; BMI 30.8
--- NOTE | 2021-10-12 23:40 | CTR_ITS ---
PROCEDURE INFORMATION: Exam: CT Head Without Contrast Exam date and time: 10/13/2021 12:19 AM Age: 51 years old Clinical indication: Speech disturbance and weakness, extremity; Left; Patient HX: C/O episodes of L sided weakness and slurred speech TECHNIQUE: Imaging protocol: Computed tomography of the head without contrast. Radiation optimization: All CT scans at this facility use at least one of these dose optimization techniques: automated exposure control; mA and/or kV adjustment per patient size (includes targeted exams where dose is matched to clinical indication); or iterative reconstruction. COMPARISON: CT head wo con* [id number] 09/01/2021 4:46 PM RADIATION DOSE METRICS: Total DLP (mGy-cm): 844.46 FINDINGS: Brain: No acute intracranial hemorrhage or mass effect. No definite acute infarct by CT. MRI could be more sensitive/specific for detection, as clinically directed. Cerebral ventricles: Ventricle size is normal for age. Paranasal sinuses: Included paranasal sinuses are essentially clear. Mastoid air cells: No significant acute finding. Vasculature: Mild vascular calcifications in the internal carotid arteries. Bones/joints: No definite acute skull fracture. Soft tissues: No significant acute finding. Other findings: . CT/CT head wo con* [id number] IMPRESSION: 1. No acute intracranial hemorrhage or mass effect. 2. No definite acute infarct by CT, see above. 3. Other findings discussed above.
--- NOTE | 2021-10-12 23:40 | ECG_ITS ---
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 Measurements Intervals [place] Rate: 77 P: 18 SC: 144 QRS: 46 QRSD: 100 T: 62 QT: 379 QTc: 429 Interpretive Statements SINUS RHYTHM Compared to ECG 09/30/2021 10:46:13 No significant changes Electronically Signed On 10-13-2021 9:00:02 CDT by Dylon Mathis M.D. [email or web address].[facility].[employer]/store/[id number]
--- NOTE | 2021-10-12 23:48 | CTR_ITS ---
PROCEDURE INFORMATION: Exam: CT Angiography Head With Contrast, Arteriography Exam date and time: 10/13/2021 12:23 AM Age: 51 years old Clinical indication: Speech disturbance and weakness; Patient HX: C/O episodes of L sided weakness and slurred speech; Additional info: Left paresthesia TECHNIQUE: Imaging protocol: Computed tomography angiography of the head with contrast. Exam focused on the arteries. 3D rendering (Not supervised by radiologist): MIP and/or 3D reconstructed images were created by the technologist. Radiation optimization: All CT scans at this facility use at least one of these dose optimization techniques: automated exposure control; mA and/or kV adjustment per patient size (includes targeted exams where dose is matched to clinical indication); or iterative reconstruction. Contrast material: OMNI 350; Contrast volume: 95 ml; Contrast route: INTRAVENOUS (IV); COMPARISON: 1. CT head wo con* [id number] 10/13/2021 12:[address] head wo con* [id number] 09/01/2021 4:46 PM RADIATION DOSE METRICS: Total DLP (mGy-cm): 2146.37 FINDINGS: ANTERIOR CIRCULATION: Right internal carotid artery: Unremarkable. Intracranial segment is patent with no significant stenosis. No aneurysm. Right middle cerebral artery: Unremarkable. No occlusion or significant stenosis. No aneurysm. Right anterior cerebral artery: Unremarkable. No occlusion or significant stenosis. No aneurysm. Left internal carotid artery: Unremarkable. Intracranial segment is patent with no significant stenosis. No aneurysm. Left middle cerebral artery: Unremarkable. No occlusion or significant stenosis. No aneurysm. Left anterior cerebral artery: Unremarkable. No occlusion or significant stenosis. No aneurysm. POSTERIOR CIRCULATION: Right vertebral artery: Unremarkable. No occlusion or significant stenosis. No aneurysm. Left vertebral artery: Unremarkable. No occlusion or significant stenosis. No aneurysm. Basilar artery: Unremarkable. No occlusion or significant stenosis. No aneurysm. Right posterior cerebral artery: Unremarkable. No occlusion or significant stenosis. No aneurysm. Left posterior cerebral artery: Unremarkable. No occlusion or significant stenosis. No aneurysm. Brain: No definite mass, mass effect, or midline shift. Cerebral ventricles: No ventriculomegaly. Bones/joints: Unremarkable. No acute fracture. Soft tissues: Unremarkable. PROCEDURE INFORMATION: Exam: CT Angiography Neck With Contrast Exam date and time: 10/13/2021 12:23 AM Age: 51 years old Clinical indication: Speech disturbance and weakness; Patient HX: C/O episodes of L sided weakness and slurred speech; Additional info: Left paresthesia TECHNIQUE: Imaging protocol: Computed tomography angiography of the neck with contrast. 3D rendering (Not supervised by radiologist): MIP and/or 3D reconstructed images were created by the technologist. Radiation optimization: All CT scans at this facility use at least one of these dose optimization techniques: automated exposure control; mA and/or kV adjustment per patient size (includes targeted exams where dose is matched to clinical indication); or iterative reconstruction. Contrast material: OMNI 350; Contrast volume: 95 ml; Contrast route: INTRAVENOUS (IV); COMPARISON: 1. CT head wo con* [id number] 10/13/2021 12:[address] head wo con* [id number] 09/01/2021 4:46 PM RADIATION DOSE METRICS: Total DLP (mGy-cm): 2146.37 FINDINGS: Right common carotid artery: No stenosis. No dissection or occlusion. Right internal carotid artery: Right ICA calcifications without significant stenosis. Right external carotid artery: No occlusion or stenosis of the origin. Left common carotid artery: No stenosis. No dissection or occlusion. Left internal carotid artery: Left ICA calcifications without significant stenosis. Left external carotid artery: No occlusion or stenosis of the origin. Right vertebral artery: No stenosis. No dissection or occlusion. Left vertebral artery: No stenosis. No dissection or occlusion. Lymph nodes: Visualized but nonenlarged bilateral cervical lymph nodes. Soft tissues: Normal. No significant soft tissue swelling. Bones/joints: No acute fracture. CT/CT angio headneck* [id number] IMPRESSION: No large vessel occlusion or stenosis. IMPRESSION: No vascular stenosis, occlusion or dissection. REFERENCES: NASCET CRITERIA. The degree of internal carotid artery stenosis is based on NASCET criteria. Normal is no stenosis. Mild is less than 50% stenosis. Moderate is 50-69% stenosis. Severe is 70% to 99% stenosis. Total occlusion is no detectable patent lumen.
[2021-10-13] LABS: Basophils # 0.1 10^3/uL (0.0-0.1); Basophils % 0.8 %; Eosinophils # 0.5 10^3/uL (0.0-0.8); Eosinophils % 4.6 %; Hematocrit 43.4 % (42.0-52.0); Hemoglobin 14.8 g/dL (11.7-16.6); Lymphocytes # 3.3 10^3/uL (0.8-4.8); Lymphocytes % 31.7 %; Mean Corpuscular HGB Conc 34.1 g/dL (30.0-36.0); Mean Corpuscular Hemoglobin 29.8 pg (28.0-34.0); Mean Corpuscular Volume 87.5 fl (80-94); Mean Platelet Volume 8.7 fL (7.4-10.4); Monocytes # 0.7 10^3/uL (0.2-0.9); Monocytes % 6.5 %; Neutrophils # 5.92 10^3/uL (1.8-7.7); Neutrophils % 56.1 %; Nucleated Red Blood Cells % 0 %; Platelet Count 273 10^3/cmm (130-400); Red Blood Count 4.96 10^6/uL (4.1-5.3); Red Cell Distribution Width 13.8 % (12.1-15.1); White Blood Count 10.6 10^3/uL (4.0-10.0)
[2021-10-13 00:23] LABS: Alanine Aminotransferase 18 U/L (0-41); Albumin Level 4.2 g/dL (3.5-5.2); Alkaline Phosphatase 120 IU/L (40-130); Anion Gap 15.1 (5-19); Aspartate Amino Transferase 17 U/L (0-40); Blood Urea Nitrogen 14 mg/dL (6-20); Calcium 9.6 mg/dL (8.5-10.5); Carbon Dioxide 24 mmol/L (22-29); Chloride 107 mmol/L (98-107); Globulin 3.3 g/dL (1.3-4.6); Glomerular Filtration Rate 102.3 mL/min (90-130); Glucose 92 mg/dL (65-115); Magnesium 2.2 mg/dL (1.7-2.3); Osmolality Calculated 294 mOsm/kg (285-295); Potassium 4.1 mmol/L (3.5-5.1); Sodium 142 mmol/L (136-145); Total Bilirubin 0.2 mg/dL (0.15-1.2); Total Protein 7.5 g/dL (6.6-8.7)
[2021-10-13 00:24] LABS: Troponin(5th) Baseline 6 ng/L (0-15)
[2021-10-13] MEDS: iohexol 350 mg/mL 100 mL Btl IV (00:29)
[2021-10-13 01:10] LABS: Folate Level 8.8 ng/mL (4.5-32.2)
[2021-10-13 01:25] LABS: Thyroid Stimulating Hormone 1.87 uIU/mL (0.27-4.20)
[2021-10-13 01:29] VITALS: BP 153/85; PULSE 76; RESP 13; TEMP 36.7; O2SAT 93
--- NOTE | 2021-10-13 01:40 | ECG_ITS ---
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 Measurements Intervals [place] Rate: 71 P: 45 OR: 165 QRS: 59 QRSD: 102 T: 58 QT: 395 QTc: 432 Interpretive Statements SINUS RHYTHM Compared to ECG 10/13/2021 00:03:44 No significant changes Electronically Signed On 10-13-2021 9:03:59 CDT by Dylon Mathis M.D. [email or web address].[facility] army community hospitalTodoCast TVmarietta memorial hospital.[facility]/store/OM/[id number]
[2021-10-13 02:04] VITALS: BP 145/94; PULSE 71; RESP 17; O2SAT 92
[2021-10-13 02:09] LABS: Vitamin B12 398 pg/mL (232-1245)
--- NOTE | 2021-10-13 02:38 | ED_ITS ---
HPI - Weakness General: Chief complaint: Weakness Stated complaint: LT side numbness Time Seen by Provider: 10/12/21 23:49 Source: patient and family History of Present Illness: 51-year-old male presents with his a couple of complaints. The first is that of chest discomfort. He said chest discomfort on and off for the last few weeks. It seemed worse today. Along with this chest discomfort, he complains of facial numbness more so than left upper and lower extremity numbness. His complained that his left eyelid looked droopy, and that he may have been having problems speaking. This seemed to start around 3 PM. It seems to have worsened a bit. His blood pressure was high at home during this episode. He is still having symptoms, although his language appears improved. MD Complaint: numbness and tingling Onset (ago): hour(s) Duration: constant and progressively worsening Location: LUE, LLE and face Migration: none Severity: moderate Quality: tingling and numbness Relieving factors: none Exacerbating factors: none Associated symptoms: Reports chest pain and nausea; Denies chills, confusion, diaphoresis, dysuria, fever(s), headache(s), myalgias, short of breath or vomiting Review of Systems Const: Denies: fever(s), chills or diaphoresis ENMT: Denies: throat pain Card: Reports: chest pain; Denies: palpitations Resp: Denies: productive cough or non-productive cough GI: Reports: nausea; Denies: vomiting : Denies: dysuria Neuro: Denies: headache(s) or confusion PFSH ED PFSH: Medical History Family history of ischemic heart disease and other diseases of the circulatory system Hypertension Obesity Smoker Family History Father , Age 58 Stroke Stroke age 51 Myocardial infarct Grandfather Myocardial infarct Mother Myocardial infarct Grandmother Myocardial infarct Other Hypertension Social History Smoking and tobacco status: current every day smoker (1ppd X 30 years) Physical Exam Const: COMMON NORMALS: alert HENMT: COMMON NORMALS: normocephalic, atraumatic and Normal external nose present HEAD & SCALP: normocephalic and atraumatic FACE & SINUS: normal facial exam and face symmetric NOSE: Normal external nose present Eye: COMMON NORMALS: Equal, round and reactive pupils present and EOMs intact bilaterally PUPIL: Yes Equal, round and reactive pupils present Chest: COMMONS NORMALS: normal inspection of the chest Resp: COMMON NORMALS: normal respiratory effort, No use of accessory muscles and clear to auscultation bilaterally AUSCULTATION: clear to auscultation bilaterally Cardio: COMMON NORMALS: regular rate, regular rhythm and No murmurs present (Cardio) RATE: regular rate RHYTHM: regular rhythm GI: COMMON NORMALS: Normal to inspection, nondistended, normoactive bowel sounds present and Soft to palpation PALPATION: Yes Soft to palpation Neuro: RADHA COMA SCALE: document GCS findings Radha coma scale eye opening: Spontaneous Radha coma scale verbal response: Orientated Folcroft coma scale motor response: Obey commands Folcroft coma scale total score: 15 SENSORIUM/ORIENTATION: Yes alert CRANIAL NERVES: Yes CN normal except as noted COORDINATION/BALANCE: [id number] test normal and [id number]-[id number] test normal SPEECH: speech normal MOTOR EXAM: Pronator motor function not present COORDINATION: [id number]-sf-[id number] test normal and [id number]-yp-[id number] test normal Psych: COMMON NORMALS: mental status grossly normal and cooperative Skin: COMMON NORMALS: no rashes or lesions noted GENERAL SKIN EXAM: no rashes or lesions noted Course Vital Signs: Vital signs: Vital Signs Temperature 98.0 F 10/13/21 01:29 Pulse Rate 72 10/13/21 02:51 Respiratory Rate 14 10/13/21 02:51 Blood Pressure 146/99 10/13/21 02:51 Pulse Oximetry 93 10/13/21 02:51 MDM - Weakness Medical Decision Making 51-year-old male with paresthesias to the left side of his face mainly, with some paresthesia to the upper and lower extremity on the left. On my exam, no weakness noted, including no facial weakness. His NIH scale is a 1 for the subj ective decreased sensation to the face in particular. CBC is normal. BMP is normal. Head CT is normal. CTA of the head and neck shows no large vessel occlusion or stenosis or dissection. EKG shows a normal sinus rhythm with a normal axis and intervals. Rate is normal, there are no acute ST changes. Troponin is 6. Folate and B12 are on the low side of normal. He is given thiamine and folic acid, as deficiencies can be causes of paresthesia. He had a negative stress test recently. Medication was ordered for his blood pressure, but it came down on his own. His chest pain is self resolved essentially. He will follow up with cardiology. Outpatient MRI of the brain with and without c ontrast has been ordered for him. He knows to return for any worsening of his symptoms. Lab Data : 10/12/21 23:55 10/12/21 23:[address] 10/12/21 23:40 IMPRESSION: 1. No acute intracranial hemorrhage or mass effect. 2. No definite acute infarct by CT, see above. 3. Other findings discussed above. Head/Neck CTA 10/12/21 23:48 IMPRESSION: No large vessel occlusion or stenosis. IMPRESSION: No vascular stenosis, occlusion or dissection. REFERENCES: NASCET CRITERIA. The degree of internal carotid artery stenosis is based on NASCET criteria. Normal is no stenosis. Mild is less than 50% stenosis. Moderate is 50-69% stenosis. Severe is 70% to 99% stenosis. Total occlusion is no detectable patent lumen. Laboratory Results WBC 10.6 10^3/uL (4.0-10.0) H 10/12/21 23:55 RBC 4.96 10^6/uL (4.1-5.3) 10/12/21 23:55 Hgb 14.8 g/dL (11.7-16.6) 10/12/21 23:55 Hct 43.4 % (42.0-52.0) 10/12/21 23:55 MCV 87.5 fl (80-94) 10/12/21 23:55 MCH 29.8 pg (28.0-34.0) 10/12/21 23:55 MCHC 34.1 g/dL (30.0-36.0) 10/12/21 23:55 RDW 13.8 % (12.1-15.1) 10/12/21 23:55 Plt Count 273 10^3/cmm (130-400) 10/12/21 23:55 MPV 8.7 fL (7.4-10.4) 10/12/21 23:55 Neut % (Auto) 56.1 % 10/12/21 23:55 Lymph % (Auto) 31.7 % 10/12/21 23:55 [place] % (Auto) 6.5 % 10/12/21 23:55 Eos % (Auto) 4.6 % 10/12/21 23:55 Baso % (Auto) 0.8 % 10/12/21 23:55 Neut # (Auto) 5.92 10^3/uL (1.8-7.7) 10/12/21 23:55 Lymph # (Auto) 3.3 10^3/uL (0.8-4.8) 10/12/21 23:55 [place] # (Auto) 0.7 10^3/uL (0.2-0.9) 10/12/21 23:55 Eos # (Auto) 0.5 10^3/uL (0.0-0.8) 10/12/21 23:55 Baso # (Auto) 0.1 10^3/uL (0.0-0.1) 10/12/21 23:55 Nucleated RBC % (auto) 0 % 10/12/21 23:55 Nucleated RBCs # 0.0 /100WBC 10/12/21 23:55 Sodium 142 mmol/L (136-145) 10/12/21 23:55 Potassium 4.1 mmol/L (3.5-5.1) 10/12/21 23:55 Chloride 107 mmol/L (98-107) 10/12/21 23:55 Carbon Dioxide 24 mmol/L (22-29) 10/12/21 23:55 Anion Gap 15.1 (5-19) 10/12/21 23:55 BUN 14 mg/dL (6-20) 10/12/21 23:55 Creatinine 0.8 mg/dL (0.7-1.2) 10/12/21 23:55 GFR Calculation 102.3 mL/min (90-130) 10/12/21 23:55 Glucose 92 mg/dL (65-115) 10/12/21 23:55 Calculated Osmolality 294 mOsm/kg (285-295) 10/12/21 23:55 Calcium 9.6 mg/dL (8.5-10.5) 10/12/21 23:55 Magnesium 2.2 mg/dL (1.7-2.3) 10/12/21 23:55 Total Bilirubin 0.2 mg/dL (0.15-1.2) 10/12/21 23:55 AST 17 U/L (0-40) 10/12/21 23:55 ALT 18 U/L (0-41) 10/12/21 23:55 Alkaline Phosphatase 120 IU/L (40-130) 10/12/21 23:55 Troponin T Baseline 6 ng/L (0-15) 10/12/21 23:55 Total Protein 7.5 g/dL (6.6-8.7) 10/12/21 23:55 Albumin 4.2 g/dL (3.5-5.2) 10/12/21 23:55 Globulin 3.3 g/dL (1.3-4.6) 10/12/21 23:55 Vitamin B12 398 pg/mL (232-1245) 10/12/21 23:55 Folate 8.8 ng/mL (4.5-32.2) 10/12/21 23:55 TSH 1.87 uIU/mL (0.27-4.20) 10/12/21 23:55 Discharge Plan Discharge Patient Disposition: Home Clinical Impression: Chest pain, Hypertension, Paresthesia Condition: Stable Prescriptions: No Action isosorbide mononitrate 30 mg tablet extended release 24 hr 30 mg PO BID Qty: 60 3RF buspirone 15 mg tablet 7.5 mg PO BID 0RF aspirin [Adult Low Dose Aspirin] 81 mg tablet,delayed release (DR/EC) 81 mg PO QAM 0RF naproxen sodium [Aleve] 220 mg tablet 220 mg PO BID PRN (Reason: Pain) 0RF clonidine HCl 0.1 mg tablet 0.1 mg PO BID PRN (Reason: hypertensive emergency) Qty: 60 1RF Rx Instructions: For blood pressure greater than 160/100 mmHg Vitamin C 500 mg Tablet 500 mg PO DAILY 0RF olmesartan 40 mg tablet 40 mg PO QAM 0RF Vitamin D3 1 cap PO DAILY 0RF Coreg 12.5 mg tablet 6.25 mg PO BID 0RF Rx Instructions: must administer with a meal/food amlodipine 10 mg tablet 10 mg PO QPM 0RF pantoprazole 40 mg tablet,delayed release (DR/EC) 40 mg PO QAM 56 Days Qty: 56 0RF Discharge Orders: Discharge ED (Routine); Ordered 10/13/21 Ordered By: Austin Kent Referrals: Elizabeth Leblanc APN [Primary Care Provider] - 1-3 days Patient Instructions: Chest Pain (ED), Paresthesia (ED) Activity Restrictions/Additional Instructions: Return for worsening chest discomfort, worsening paresthesias/numbness or dizziness, syncope or passing out, language problems, any other concerns. Follow-up with your doctor. A case management referral has been placed for you to get an MRI of your brain as an outpatient. You should get a call about this at the beginning of the week. Coding Level of Care Code ED [employer] Developer for Chg Fwd Exam Comprehensive NIH stroke score NIHSS Level Of Consciousness - 1a: 0 Level Of Consciousness Questions - 1b: Both Correct Level Of Consciousness Commands - 1c: Both Correct Best Gaze - 2: Normal Visual Key - 3: No Visual Loss Facial Palsy - 4: Normal Motor Arm Right - 5: No Drift Motor Arm Left - 5: No Drift Motor Leg Right - 6: No Drift Motor Leg Left - 6: No Drift Limb Ataxia - 7: Absent Sensory - 8: Mild To Moderate Loss Best Language - 9: No Aphasia Dysarthia - 10: Normal Extinction And Inattention - 11: 0 Score Total Score: 1
[2021-10-13 02:51] VITALS: BP 146/99; PULSE 72; RESP 14; O2SAT 93
--- NOTE | 2021-10-14 12:12 | DCPLANNER ---
Addendum entered by Michell Bird 04/07/22 14:48: inactivated by Merlene on 02/20/22 per denied FA Original Note: manager convention had message to schedule an outpatient MRI for patient. manager convention called patient to confirm that he wanted the MRI scheduled and to confirm who patient sees for primary care. Patient stated that he did want to have the MRI scheduled, and that he sees Elizabeth Leblanc for his primary care. manager convention faxed signed order for the MRI to centralized scheduling, who will call patient with appointment information.
== END 2021-10-13 02:52 | disposition home or self-care (01) ==
PROVIDERS: Nurse Practitioner Family; Emergency Provider Emergency Medicine; PCP Nurse Practitioner Family
DX: R07.9 Chest pain, unspecified (principal); R20.2 Paresthesia of skin; I10 Essential (primary) hypertension; Z79.82 Long term (current) use of aspirin; F17.210 Nicotine dependence, cigarettes, uncomplicated; Z82.3 Family history of stroke; Z82.49 Family history of ischemic heart disease and other diseases of the circulatory system
CPT/HCPCS: 70450; 70496; 70498; 80053; 82607; 82746; 83735; 84443; 84484; 85025; 93005; 96361; 96374; 99284; J3411; J3490; Q9967